=== PATIENT | male | born 1965 | race African-American/Black ===

== ENCOUNTER → 2016-07-29 | Outpatient (CLI) | payer MEDICARE, OTHER ==
--- NOTE | 2016-07-29 17:34 | Diagnostic Imaging Report ---
Indications: Lumbar radiculopathy, history of fall with back trauma at age 17 Technique: Sagittal STIR, sagittal and axial T1 weighted and T2 weighted fast spin echo sequences of the lumbar spine were performed without IV gadolinium administration. Findings: Comparison: 06/06/08 The L1-2 disc is normal in height and signal. Mild anterior annular bulge with marginal osteophyte formation. No significant posterior margin disease.. Facet joints and ligamenta flava are unremarkable. Spinal canal, lateral recesses and neural foramina are normal in caliber. The L2-3 disc is normal in height and signal. No significant annular bulge/protrusion or marginal osteophyte formation. Facet joints and ligamenta flava are unremarkable. Spinal canal, lateral recesses and neural foramina are normal in caliber. The L3-4 disc is normal in height and signal. No significant annular bulge/protrusion or marginal osteophyte formation. Facet joints and ligamenta flava are unremarkable. Spinal canal, lateral recesses and neural foramina are normal in caliber. The L4-L5 disc is normal in height and signal. Minimal circumferential annular bulge.. Facet joints and ligamenta flava are unremarkable. Spinal canal, lateral recesses and neural foramina are normal in caliber. The L5-S1 disc is normal in height and signal. Minimal circumferential annular bulge.. Facet joints mildly hypertrophied. Ligaments are unremarkable. Spinal canal, lateral recesses and neural foramina are normal in caliber. Spinal cord ends at T12-L1. Conus medullaris, cauda equina, remainder of thecal sac contents intrinsically unremarkable. No intradural or extradural masses or fluid collections are demonstrated. The lumbar vertebrae are normal in configuration and marrow signal characteristics , aside from degenerative changes described above and small circumscribed fat signal focus in the L5 vertebral body, unchanged.. No fracture, lytic destruction, or other acute process is demonstrated. Paraspinous soft tissues are unremarkable. IMPRESSION: Multilevel mild degenerative changes as described in detail level by level above, without obvious neural impingement, not significantly changed from previous exam Stable small hemangioma L5 vertebral body
--- NOTE | 2016-07-29 17:48 | Diagnostic Imaging Report ---
Indications: Neck pain Technique: Sagittal STIR and T1 weighted fast spin-echo, sagittal and axial T2 weighted fast spin echo, and axial COSMIC ASPIR sequences of the cervical spine were performed without IV gadolinium administration. Findings: Comparison: 04/22/2014 The C1-C2 level is unremarkable. Occipital-C1 and C1-2 alignments are intact. Retro-odontoid soft tissues unremarkable. Spinal canal, lateral recesses and neural foramina are normal in caliber. The C2-C3 disc is normal in height and signal. No significant annular bulge/protrusion or marginal osteophyte formation. Facet joints and ligamenta flava are unremarkable. Spinal canal, lateral recesses and neural foramina are normal in caliber. The C3-C4 disc is normal in height and signal. Mild circumferential annular bulge gently indenting the ventral surface of the thecal sac, mildly more prominent than on previous exam.. Facet joints and ligamenta flava are unremarkable. Spinal canalnarrowed to 9 mm AP diameter. No obvious cord compression or displacement. Lateral recesses and neural foramina are normal in caliber. The C4-C5 disc is normal in height and signal. Mild circumferential annular bulge gently indenting the ventral surface of the thecal sac, unchanged. Facet joints and ligamenta flava are unremarkable. Spinal canalnarrowed to 10 mm AP diameter. No obvious cord compression or displacement. Mild narrowing of neural foramina] of the left, unchanged. Lateral recesses are normal in caliber. The C5-C6 disc is normal in height, decreased signal. Circumferential annular bulge with undulating posterior margin, most prominent at posterior right paracentral and right posterolateral margins, asymmetrically indenting the ventral surface of thecal sac. This appears mildly more prominent than on previous exam.. Facet joints and ligamenta flava are unremarkable. Spinal canalnarrowed to 9 mm AP diameter. Lateral recesses mildly narrowed bilaterally, mildly more prominent. Neural foramina severely narrowed bilaterally, mildly more prominent.. The C6-C7 disc is normal in height and signal. Circumferential intimal most prominent at right posterior lateral margin, mildly more prominent than on previous exam.. Facet joints and ligamenta flava are unremarkable. Spinal canalnarrowed to 10 mm AP diameter, without obvious cord compression or displacement. Lateral recesses mildly narrowed bilaterally, right greater than left, with more prominent. Right neural foramen severely narrowed, more prominent. Left neural foramen moderately narrowed, unchanged. . The C7-T1 disc is normal in height and signal. Mild broad-based protrusion left posterolateral margin, unchanged.. Facet joints and ligamenta flava are unremarkable. Left lateral recess and neural foramen mildly narrowed, unchanged. Spinal canal, right lateral recess and neural foramen are normal in caliber. Spinal cord is normal in configuration and signal characteristics. No intradural or extradural masses or fluid collections are demonstrated. The cervical vertebrae are normal in configuration and marrow signal characteristics , aside from degenerative changes described above. No fracture, lytic destruction, or other acute process is demonstrated. Paraspinous soft tissues are unremarkable. IMPRESSION: Multilevel degenerative disc disease as described in detail level by level above. Apparent progression of disease at C3-4, C5-6, and C6-7. Multilevel mild spinal stenosis without cord compression. Significant right neural foraminal narrowing at C6-7, bilateral neural foraminal narrowing at C5-6, apparently progressed. Nerve root impingement should be considered. Multilevel lateral recess narrowing without obvious neural impingement.
== END | disposition home or self-care (01) ==
LOC: MRI 11:35
DX: M54.16 Radiculopathy, lumbar region (principal); Z91.81 History of falling; M48.00 Spinal stenosis, site unspecified; M50.31 Other cervical disc degeneration, high cervical region
CPT/HCPCS: 72141; 72148